=== PATIENT | male | born 1935 ===

== ENCOUNTER 2025-02-04 22:48 | Emergency (ER) | payer MEDICARE, OTHER ==
[2025-02-04 23:15] VITALS: BP 127/72; PULSE 76
[2025-02-04] MEDS: Acetaminophen 500 MG Tab PO ONE (23:26)
== END 2025-02-05 00:35 ==
LOC: LL.ED 22:48
DX: M79.18 Myalgia, other site (principal); Z79.899 Other long term (current) drug therapy
CPT/HCPCS: 99283; A9270-GY

== ENCOUNTER 2025-04-15 20:25 | Emergency (ER) | payer MEDICARE, OTHER ==
[2025-04-15] MEDS ORDERED: Naloxone 0.4 MG/ML SDV IVPUSH PRN (20:43)
[2025-04-15] MEDS: Ondansetron 4 MG/2 ML SDV IVPUSH ONE (20:49)
[2025-04-15] MEDS: fentaNYL 50 MCG/ML SDV IVPUSH ONE ×2 (20:49→21:53)
[2025-04-15] MEDS: Sodium Chloride 0.9% 10 ML Syringe FLUSH PRN (20:59)
[2025-04-15] MEDS: diazePAM 10 MG/2 ML Syringe IVPUSH ONE (21:18)
== END 2025-04-15 22:00 ==
LOC: LL.ED 20:25
DX: S72.141A Displaced intertrochanteric fracture of right femur, initial encounter for closed fracture (principal); N18.2 Chronic kidney disease, stage 2 (mild); Z79.899 Other long term (current) drug therapy; W18.39XA Other fall on same level, initial encounter; Y92.009 Unspecified place in unspecified non-institutional (private) residence as the place of occurrence of the external cause
CPT/HCPCS: 73502; 94761; 96374; 96375; 96376; 99285; J2405; J3010; J3360